=== PATIENT | female | born 2000 | race Caucasian/White ===

== ENCOUNTER → 2022-06-10 | Outpatient (REF) | LOC: M LABSMTC 09:57 | PROVIDERS: ATTEND Family Medicine | DX: Z11.52 Encounter for screening for COVID-19 (principal) ==

== ENCOUNTER → 2023-03-26 | Outpatient (REF) | LOC: M EMP 11:25 | PROVIDERS: ATTEND Family Medicine | DX: Z11.52 Encounter for screening for COVID-19 (principal) ==

== ENCOUNTER 2023-04-22 19:34 | Emergency (ER) | payer OTHER ==
[~2023-04-22] VITALS: Ht 162.6 cm; Wt 74.2 kg
[2023-04-22 21:30] VITALS: BP 122/81; TEMP 98.3; O2SAT 99
== END 2023-04-22 21:55 | disposition home or self-care (01) ==
LOC: M ED 19:34
DX: T59.894A Toxic effect of other specified gases, fumes and vapors, undetermined, initial encounter (principal)

== ENCOUNTER 2023-09-25 07:04 | Observation (INO) | payer OTHER ==
[~2023-09-25] VITALS: Ht 162.6 cm; Wt 78.4 kg
[2023-09-25] MEDS: ENOXAPARIN 40MG/0.4ML SYRINGE (J1650 PER 10MG) SC SCH (09:00)
[2023-09-25] MEDS ORDERED: HOME MED LIST COMPLETE! XX SCH (09:15)
[2023-09-25 09:54] LABS: BASO # 0.1 10^3/uL (0.0-0.2); BASO % 0.7 % (0.0-1.0); EOS # 0.1 10^3/uL (0.0-0.5); EOS % 1.1 % (0.0-3.0); HEMATOCRIT 37.8 % (36.0-47.0); HEMOGLOBIN 12.6 g/dl (12.0-15.5); LYMPH # 2.1 10^3/uL (1.5-5.0); LYMPH % 23.9 % (24.0-44.0); MEAN CORPUSCULAR HEMOGLOBIN 29.2 pg (27.0-33.0); MEAN CORPUSCULAR HGB CONC 33.3 g/dl (32.0-36.5); MEAN CORPUSCULAR VOLUME 87.7 fl (80.0-96.0); MONO # 0.5 10^3/uL (0.0-0.8); MONO % 5.4 % (2.0-8.0); NEUTROPHILS % 68.8 % (36.0-66.0); PLATELET COUNT, AUTOMATED 330 10^3/uL (150-450); RED BLOOD COUNT 4.31 10^6/uL (4.00-5.40); WHITE BLOOD COUNT 8.8 10^3/uL (4.0-10.0)
[2023-09-25] MEDS: AMPICILLIN SOD/SULBACTAM SOD 3 GM in D5W MINI-BAG PLUS 100 ML IV ONE (09:57)
[2023-09-25 10:14] LABS: ERYTHROCYTE SEDIMENTATION RATE 12 mm/hr (0-20)
[2023-09-25 10:22] LABS: BLOOD UREA NITROGEN 7 MG/DL (9-23); CALCIUM LEVEL 9.5 MG/DL (8.5-10.1); CARBON DIOXIDE LEVEL 27 MMOL/L (20-31); CHLORIDE LEVEL 106 MMOL/L (98-107); CREATININE FOR GFR 0.64 MG/DL (0.55-1.30); GLOMERULAR FILTRATION RATE > 60.0 (>60); GLUCOSE, FASTING 83 MG/DL (60-100); POTASSIUM SERUM 4.1 MMOL/L (3.5-5.1); SODIUM LEVEL 139 MMOL/L (136-145)
[2023-09-25] MEDS ORDERED: ACETAMINOPHEN TAB 650MG DOSE (2X325MG) PO PRN (10:35)
[2023-09-25] MEDS ORDERED: MAALOX 30 ML SUSP *UDC PO PRN (10:35)
[2023-09-25] MEDS ORDERED: MOM 30ML SUSPENSION UDC PO PRN (10:35)
[2023-09-25] MEDS: BOOSTRIX VACCINE (TETANUS/DIPHTH/ACEL. PERTUSSIS) 0.5ML SYR IM ONE (10:48)
[2023-09-25 11:00] VITALS: BP 128/67; TEMP 97.9; O2SAT 99
[2023-09-25] MEDS: AMPICILLIN SOD/SULBACTAM SOD 3 GM in D5W MINI-BAG PLUS 100 ML IV SCH (15:58)
[2023-09-25 20:07] VITALS: BP 109/59; TEMP 98.1; O2SAT 98
[2023-09-26 04:45] VITALS: BP 122/69; TEMP 97.7; O2SAT 99
[2023-09-26 07:32] LABS: HEMATOCRIT 36.2 % (36.0-47.0); HEMOGLOBIN 12.1 g/dl (12.0-15.5); MEAN CORPUSCULAR HEMOGLOBIN 29.2 pg (27.0-33.0); MEAN CORPUSCULAR HGB CONC 33.4 g/dl (32.0-36.5); MEAN CORPUSCULAR VOLUME 87.4 fl (80.0-96.0); PLATELET COUNT, AUTOMATED 281 10^3/uL (150-450); RED BLOOD COUNT 4.14 10^6/uL (4.00-5.40); WHITE BLOOD COUNT 7.4 10^3/uL (4.0-10.0)
[2023-09-26 07:57] LABS: BLOOD UREA NITROGEN 7 MG/DL (9-23); CALCIUM LEVEL 9.2 MG/DL (8.5-10.1); CARBON DIOXIDE LEVEL 27 MMOL/L (20-31); CHLORIDE LEVEL 109 MMOL/L (98-107); GLOMERULAR FILTRATION RATE > 60.0 (>60); GLUCOSE, FASTING 91 MG/DL (60-100); SODIUM LEVEL 141 MMOL/L (136-145)
[2023-09-26 12:00] VITALS: BP 95/58; TEMP 98.1; O2SAT 99
[2023-09-26 20:00] VITALS: BP 119/62; TEMP 97.9; O2SAT 97
[2023-09-27 04:20] VITALS: BP 96/57; TEMP 97.7; O2SAT 98
[2023-09-27 06:03] LABS: BASO # 0.1 10^3/uL (0.0-0.2); BASO % 0.7 % (0.0-1.0); EOS # 0.3 10^3/uL (0.0-0.5); EOS % 3.5 % (0.0-3.0); HEMATOCRIT 36.8 % (36.0-47.0); HEMOGLOBIN 12.3 g/dl (12.0-15.5); LYMPH # 2.5 10^3/uL (1.5-5.0); LYMPH % 28.1 % (24.0-44.0); MEAN CORPUSCULAR HEMOGLOBIN 29.6 pg (27.0-33.0); MEAN CORPUSCULAR HGB CONC 33.4 g/dl (32.0-36.5); MEAN CORPUSCULAR VOLUME 88.5 fl (80.0-96.0); MONO # 0.6 10^3/uL (0.0-0.8); MONO % 6.2 % (2.0-8.0); NEUTROPHILS # 5.4 10^3/uL (1.5-8.5); NEUTROPHILS % 61.3 % (36.0-66.0); PLATELET COUNT, AUTOMATED 304 10^3/uL (150-450); RED BLOOD COUNT 4.16 10^6/uL (4.00-5.40); WHITE BLOOD COUNT 8.9 10^3/uL (4.0-10.0)
[2023-09-27] MEDS ORDERED: PROB250C PO (10:21)
[2023-09-27] MEDS ORDERED: AMOX875T2 PO (10:21)
[2023-09-27 12:00] VITALS: BP 109/65; TEMP 98.1; O2SAT 98
== END 2023-09-27 15:35 | disposition home or self-care (01) ==
LOC: M ED 07:04 → M ED INP 07:05 → M MS5PR 11:05
PROVIDERS: ADMIT Student in an Organized Health Care Education/Training Program; ATTEND Student in an Organized Health Care Education/Training Program
DX: S61.233A Puncture wound without foreign body of left middle finger without damage to nail, initial encounter (principal); W54.0XXA Bitten by dog, initial encounter; Y92.89 Other specified places as the place of occurrence of the external cause; Y93.9 Activity, unspecified; Y99.9 Unspecified external cause status
CPT/HCPCS: 36415; 73140; 80048; 83735; 85025; 85027; 85652; 86140; 90471; 90715; 96365; 96366; 99284; J0295

== ENCOUNTER 2024-05-06 12:52 | Emergency (ER) | payer OTHER ==
[~2024-05-06] VITALS: Ht 162.6 cm; Wt 77.5 kg
[~2024-05-06 12:52] MED LIST: AMOX875T2 PO; PROB250C PO
[2024-05-06] MEDS: LIDOCAINE 1% MDV 20ML VIAL SC ONE (17:40)
[2024-05-06 18:56] VITALS: BP 104/59; TEMP 97.2; O2SAT 100
[2024-05-06] MEDS ORDERED: AMOX875T2 PO (19:00)
[2024-05-06] MEDS: BACITRACIN OINTMENT 30GM TUBE TOP STA (19:09)
== END 2024-05-06 19:16 | disposition home or self-care (01) ==
LOC: M ED 12:52
DX: S61.551A Open bite of right wrist, initial encounter (principal); S71.111A Laceration without foreign body, right thigh, initial encounter; W54.0XXA Bitten by dog, initial encounter; Y92.009 Unspecified place in unspecified non-institutional (private) residence as the place of occurrence of the external cause; Y93.89 Activity, other specified; Y99.9 Unspecified external cause status